=== PATIENT | male | born 1990 | race Caucasian/White ===

== ENCOUNTER 2018-04-05 08:01 | Emergency (ER) | payer OTHER ==
[2018-04-05 08:03] VITALS: BMI 23.6
[2018-04-05 08:04] VITALS: O2SAT 100
[2018-04-05] MEDS ORDERED: Tdap Vaccine 0.5 ml Vial (10-64 yrs) IM ONE ×2 (08:31→08:54)
--- NOTE | 2018-04-05 09:27 | ED PDOC ---
Lower Extremity Pain/Injury Time Seen by Provider: 04/05/18 08:27 Chief Complaint (Nursing): Abnormal Skin Integrity Chief Complaint (Provider): Abnormal Skin Integrity History Per: Patient History/Exam Limitations: no limitations Onset/Duration Of Symptoms: Hrs (04/05/18 morning) Current Symptoms Are (Timing): Still Present Additional Complaint(s): Benny Burden is a 28 year old male with no past medical history, who presents to the emergency department with a laceration on his right ankle. Patient states he was in the bathroom this morning and a mirror fell and broke and ended up cutting him. His current tetanus is unknown. PMD: Dr. Abbott Past Medical History Reviewed: Historical Data, Nursing Documentation, Vital Signs Vital Signs: Last Vital Signs Temp 98 F 04/05/18 08:03 Pulse 96 H 04/05/18 08:03 Resp 20 04/05/18 08:03 BP 127/81 04/05/18 08:03 Pulse Ox 100 04/05/18 08:03 - Medical History PMH: No Chronic Diseases Denies: Chronic Kidney Disease - Surgical History Surgical History: No Surg Hx - Family History Family History: States: Unknown Family Hx - Immunization History Hx Tetanus Toxoid Vaccination: No (cant recall) - Home Medications Home Medications: Ambulatory Orders Medication Instructions Recorded Amoxicillin/Clavulanate [Augmentin 1 tab PO BID #14 tab 04/05/18 875 MG-125 MG] Naproxen [Naprosyn] 500 mg PO BID PRN #20 tablet 04/05/18 - Allergies Allergies/Adverse Reactions: Allergies Allergy/AdvReac Type Severity Reaction Status Date / Time Sulfa (Sulfonamide Allergy RASH Verified 04/05/18 08:11 Antibiotics) Review of Systems ROS Statement: Except As Marked, All Systems Reviewed And Found Negative Musculoskeletal: Positive for: Other (ankle laceration) Physical Exam - Reviewed Nursing Documentation Reviewed: Yes Vital Signs Reviewed: Yes - Physical Exam Appears: Positive for: Non-toxic, No Acute Distress Head Exam: Positive for: ATRAUMATIC, NORMOCEPHALIC Respiratory: Negative for: Respiratory Distress Pulses-Dorsalis Pedis (L): 2+ Pulses-Dorsalis Pedis (R): 2+ Extremity: Positive for: Other (5 cm wide irregular laceration on right anterior ankle; decreased sensation on medial foot; moving all digits) - ECG O2 Sat by Pulse Oximetry: 100 (RA) Pulse Ox Interpretation: Normal Medical Decision Making Medical Decision Making: Initial time: 08:31 Initial impression: ankle laceration Plan: --Adacel 10-64 years 0.5 ml IM --ankle X-ray 08:35 Podiatry was consulted. 09:43 Ankle X-ray FINDINGS: BONES: No acute fracture or destructive bony lesion identified. JOINTS: Normal. No osteoarthritis. Ankle mortise maintained. Talar dome intact SOFT TISSUES: Normal. OTHER FINDINGS: None. IMPRESSION: Unremarkable right ankle radiographs. --- Scribe Attestation: Documented by Juan Kapadia, acting as a scribe for Esther Hsu MD. Provider Scribe Attestation: All medical record entries made by the Scribe were at my direction and personally dictated by me. I have reviewed the chart and agree that the record accurately reflects my personal performance of the history, physical exam, medical decision making, and the department course for this patient. I have also personally directed, reviewed, and agree with the discharge instructions and disposition. Disposition - Clinical Impression Clinical Impression: Laceration of ankle - Disposition Referrals: Giles Cardenas DPM [Staff Provider] - Disposition Time: 12:11 Condition: STABLE Additional Instructions: FOLLOW-UP WITH DR. CARDENAS IN 5-7 DAYS FOR SUTURE REMOVAL AND REEVALUATION. Prescriptions: Amoxicillin/Clavulanate [Augmentin 875 MG-125 MG] 1 tab PO BID #14 tab Naproxen [Naprosyn] 500 mg PO BID PRN #20 tablet PRN Reason: Pain, Moderate (4-7) Instructions: Wound Care, Laceration Repair With Stitches (DC) Forms: [employer] ([place])
--- NOTE | 2018-04-05 09:46 | RAD ---
Date of service: 04/05/2018 PROCEDURE: Right Ankle Radiographs. HISTORY: Laceration by mirror COMPARISON: None available. FINDINGS: BONES: No acute fracture or destructive bony lesion identified. JOINTS: Normal. No osteoarthritis. Ankle mortise maintained. Talar dome intact SOFT TISSUES: Normal. OTHER FINDINGS: None. IMPRESSION: Unremarkable right ankle radiographs.
[2018-04-05] MEDS ORDERED: Epinephrine /Lidocaine HCL 1:100,000/2% 30 ml INJ ONE (09:55)
[2018-04-05] MEDS ORDERED: Lidocaine 1% w Epi 1:100,000 Inj ONE (09:58)
[2018-04-05] MEDS ORDERED: Povidone Iodine Topical 10% Sol ONE (10:01)
--- NOTE | 2018-04-05 10:08 | CP.PCM.CON ---
History of Present Illness - History of Present Illness History of Present Illness: Podiatry Consult Note for Dr. Lyman: 28M patient, with no significant PMHx, seen and examined at bedside for L anterior ankle laceration. Patient states that he was getting ready for work this morning when a mirror fell and hit hit ankle. He immediately felt pain to the area and presented to the emergency room. Patient is able to ambulate however, experiences 6/10 pain with ankle ROM. He denies any N/V/F/SOB/CP. PMH: Denies PSHx: denies ALL: Sulfa Past Patient History - Past Social History Smoking Status: Former Smoker - CARDIAC Hx Cardiac Disorders: No - PULMONARY Hx Respiratory Disorders: No - NEUROLOGICAL Hx Neurological Disorder: No - HEENT Hx HEENT Problems: No - RENAL Hx Chronic Kidney Disease: No - ENDOCRINE/METABOLIC Hx Endocrine Disorders: No - HEMATOLOGICAL/ONCOLOGICAL Hx Blood Disorders: No - INTEGUMENTARY Hx Dermatological Problems: No - MUSCULOSKELETAL/RHEUMATOLOGICAL Hx Musculoskeletal Disorders: No - GASTROINTESTINAL Hx Gastrointestinal Disorders: No - GENITOURINARY/GYNECOLOGICAL Hx Genitourinary Disorders: No - PSYCHIATRIC Hx Psychophysiologic Disorder: No Hx Substance Use: No (used to in [employer]) - SURGICAL HISTORY Hx Surgeries: No - ANESTHESIA Hx Anesthesia: No Meds Allergies/Adverse Reactions: Allergies Allergy/AdvReac Type Severity Reaction Status Date / Time Sulfa (Sulfonamide Allergy RASH Verified 04/05/18 08:11 Antibiotics) Physical Exam - Constitutional Appears: Well, Non-toxic, No Acute Distress - Head Exam Head Exam: ATRAUMATIC, NORMOCEPHALIC - Extremities Exam Additional comments: RLE focused Vasc: DP and PT pulses 2/4; cap refill <3 seconds to all digits; temp gradient warm to warm from proximal to distal; no edema noted to LE Derm: laceration measuring about 3.5cm in length on the anterior lower leg just proximal to the ankle joint down to subcutaneous tissue layer, no tendon exposed, no bone exposed, no streaking or cellulitis present, no clinical signs of infection Ortho: pain on palpation of the laceration and adjacent areas, pain on ROM at the ankle associated with guarding in all directions other than plantarflexion Neuro: gross and protective sensation intact - Neurological Exam Neurological exam: Alert, Oriented x3 - Psychiatric Exam Psychiatric exam: Normal Affect, Normal Mood Results - Vital Signs Recent Vital Signs: Last Vital Signs Temp 98 F 04/05/18 08:03 Pulse 96 H 04/05/18 08:03 Resp 20 04/05/18 08:03 BP 127/81 04/05/18 08:03 Pulse Ox 100 04/05/18 09:57 Assessment & Plan - Assessment and Plan (Free Text) Assessment: 28 yo male with right ankle laceration Plan: Patient seen and evaluated with all questions and concerns addressed Discussed patient plan with Dr. Nura Tobin ankle x-rays taken: unremarkable, no osseous deformities present Tetanus administered Ankle laceration cleansed with saline and betadine solution and sutured with 3-0 vicryl and 4-0 nylon Rx for Augmentin dispensed to patient Patient to follow up with Dr. Lyman in office in 1 week - Date & Time Date: 04/05/18 Time: 10:05
[2018-04-05] MEDS ORDERED: Lidocaine/Epi 1% 1:100000 20 ML IJ ONE (10:46)
[2018-04-06 00:07] VITALS: BP 124/83; PULSE 97; RESP 16; TEMP 98.3
== END 2018-04-05 12:11 | disposition home or self-care (01) ==
LOC: H.ER 08:01
DX: S91.011A Laceration without foreign body, right ankle, initial encounter (principal); W25.XXXA Contact with sharp glass, initial encounter; Y92.002 Bathroom of unspecified non-institutional (private) residence as the place of occurrence of the external cause